=== PATIENT | female | born 1980 | race Caucasian/White ===

== ENCOUNTER 2022-12-31 21:48 | Emergency (ER) | payer SELFPAY ==
[~2022-12-31] VITALS: Ht 157 cm; Wt 60.3 kg
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
[2022-12-31 22:22] LABS: BASOPHILS % (AUTO) 0 % (0-10); CLARITY,URINE SL CLOUDY; COLOR,URINE YELLOW; EOSINOPHILS # (AUTO) 0.1 10^3/uL (0.0-0.3); EOSINOPHILS % (AUTO) 2 % (0-10); GLUCOSE, URINE (UA) NEGATIVE (NEGATIVE); HEMATOCRIT 38 % (35-52); HEMOGLOBIN 11.9 g/dL (11.5-16.0); KETONES,URINE 1+ (NEGATIVE); LEUKOCYTE ESTERASE ,URINE NEGATIVE (NEGATIVE); LYMPHOCYTES # (AUTO) 1.7 10^3/uL (1.0-4.0); LYMPHOCYTES % (AUTO) 33 % (12-44); MEAN CORPUSCULAR HEMOGLOBIN 22 pg (25-34); MEAN CORPUSCULAR HGB CONC 31 g/dL (32-36); MEAN CORPUSCULAR VOLUME 71 fL (80-99); MEAN PLATELET VOLUME 8.8 fL (9.0-12.2); MONOCYTES # (AUTO) 0.7 10^3/uL (0.0-1.0); MONOCYTES % (AUTO) 13 % (0-12); NEUTROPHILS # (AUTO) 2.6 10^3/uL (1.8-7.8); NEUTROPHILS % (AUTO) 52 % (42-75); NITRITE,URINE NEGATIVE (NEGATIVE); PH,URINE 5.5 (5-9); PLATELET COUNT 357 10^3/uL (130-400); PROTEIN,URINE 1+ (NEGATIVE); WHITE BLOOD COUNT 5.1 10^3/uL (4.3-11.0)
[2022-12-31 22:26] LABS: HCG,QUALITATIVE URINE NEGATIVE (NEGATIVE)
[2022-12-31 22:28] LABS: SQUAMOUS EPITHELIAL CELL,UR >50 /HPF
[2022-12-31] MEDS ORDERED: LACTATED RINGERS 1,000 ML IV ONE (22:30)
[2022-12-31] MEDS ORDERED: ONDANSETRON 4 MG/2 ML (SDV) Z0FRAN IVP ONE (22:30)
[2022-12-31] MEDS ORDERED: PANTOPRAZOLE 40 MG (PROTONIX) VIAL IV ONE (22:30)
[2022-12-31 22:31] LABS: ALBUMIN 4.2 GM/DL (3.2-4.5); BACTERIA,URINE FEW /HPF; CHLORIDE 99 MMOL/L (98-107); RBC,URINE 25-50 /HPF; SODIUM 136 MMOL/L (135-145); WBC,URINE 0-2 /HPF
[2022-12-31 22:32] LABS: AMORPHOUS SEDIMENT,UR FEW AMOR URATES /LPF; AMYLASE 130 U/L (25-125); BILIRUBIN,URINE 1+ (NEGATIVE); CALCIUM 9.6 MG/DL (8.5-10.1)
[2022-12-31 22:33] LABS: GLUCOSE 137 MG/DL (70-105); POTASSIUM 2.5 MMOL/L (3.6-5.0)
[2022-12-31 22:34] LABS: CARBON DIOXIDE 25 MMOL/L (21-32); TOTAL PROTEIN 7.9 GM/DL (6.4-8.2)
[2022-12-31 22:35] LABS: BILIRUBIN,TOTAL 0.7 MG/DL (0.1-1.0)
[2022-12-31 22:37] LABS: ALKALINE PHOSPHATASE 103 U/L (40-136); CREATININE SERUM 0.82 MG/DL (0.60-1.30); GFR ESTIMATED 92
[2022-12-31 22:38] LABS: BUN/CREATININE RATIO 12
[2022-12-31 22:40] LABS: ALANINE AMINOTRANSFERASE 22 U/L (0-55)
[2022-12-31 22:41] LABS: AMPHETAMINE SCREEN, URINE NEGATIVE (NEGATIVE); BARBITURATE SCREEN URINE POSITIVE (NEGATIVE); BENZODIAZEPINES SCREEN URINE POSITIVE (NEGATIVE); CANNABINOID SCREEN, URINE POSITIVE (NEGATIVE); COCAINE SCREEN URINE NEGATIVE (NEGATIVE); LIPASE 75 U/L (8-78); METHADONE STAT NEGATIVE (NEGATIVE); OPIATE SCREEN URINE NEGATIVE (NEGATIVE); OXYCODONE STAT NEGATIVE (NEGATIVE); PROPOXYPHENE STAT NEGATIVE (NEGATIVE); TRICYCLIC ANTIDEPRESSANTS SCRE NEGATIVE (NEGATIVE)
[2022-12-31] MEDS ORDERED: IOHEXOL 350 MG/ML 100 ML (OMNIPAQUE 350) VIAL IV ONE (23:30)
[2022-12-31] MEDS ORDERED: NS 100 ML (IVPB) BAG IV ONE (23:30)
[2022-12-31] MEDS ORDERED: HOLD METFORMIN - RECEIVED CONTRAST 20 ML VIAL IV SCH (23:30)
[2022-12-31] MEDS: METOCLOPRAMIDE INJ 10 MG/2 ML (REGLAN) IVP ONE ×2 (23:45→23:47)
[2023-01-01] MEDS ORDERED: RX-PHENERGAN 25 MG SUPP PPK#3 PR STA (00:21)
[2023-01-01] MEDS ORDERED: RX-ONDANSETRON 4 MG ODT (ZOFRAN) PPK #4 PO STA (00:21)
[2023-01-01] MEDS ORDERED: ONDA8TAB13 PO (00:25)
[2023-01-01] MEDS ORDERED: PANT40TA2 PO (00:25)
[2023-01-01] MEDS ORDERED: CAPS60CR4 TP (00:25)
[2023-01-01] MEDS ORDERED: PROM25SU44 RC (00:25)
[2023-01-01] MEDS ORDERED: KCL 10 MEQ TAB (MICRO K) PO ONE (00:30)
[2023-01-01 00:35] VITALS: BP 175/109
--- NOTE | 2023-01-01 08:30 | Diagnostic Imaging Report ---
PROCEDURE: CT abdomen and pelvis with contrast. TECHNIQUE: Multiple contiguous axial images were obtained through the abdomen and pelvis after administration of intravenous contrast. Auto Exposure Controls were utilized during the CT exam to meet ALARA standards for radiation dose reduction. All CT scans use one or more of the following dose optimizing techniques: automated exposure control, MA and/or KvP adjustment based on patient size and exam type or iterative reconstruction. INDICATION: Pain, nausea, vomiting. Intravenous contrast administered CT abdomen and pelvis performed. I have no priors for comparison. FINDINGS: There is a normal appendix and there is no bowel obstruction. There is no hydroureteronephrosis nor radiodense urinary tract stone. Liver, spleen, adrenals and pancreas negative. There is gastric bypass without evidence for its complication. No pneumatosis. No free gas. No hemorrhage, ascites or acute fluid collection. Uterus and adnexa nonacute. The urinary bladder unremarkable. Abdominal wall intact. Lung bases and bony structures nonacute. IMPRESSION: Prior surgery with no obstruction and inflammation, hemorrhage or acute appearing abdominal pelvic abnormalities. Dictated by: Dictated on workstation # [id number]
== END 2023-01-01 00:35 | disposition home or self-care (01) ==
LOC: ER 21:50
DX: R10.13 Epigastric pain (principal); F12.20 Cannabis dependence, uncomplicated; G89.29 Other chronic pain; R11.2 Nausea with vomiting, unspecified; F17.210 Nicotine dependence, cigarettes, uncomplicated; F17.290 Nicotine dependence, other tobacco product, uncomplicated; Z90.49 Acquired absence of other specified parts of digestive tract; Z98.84 Bariatric surgery status; Z59.00 Homelessness unspecified; Z28.310 Unvaccinated for COVID-19
CPT/HCPCS: 74177; 80053; 80306; 81000; 82150; 83690; 84703 ×2; 85025; 99284; G0480; 36415; 80320